=== PATIENT | female | born 1970 | race Caucasian/White ===

== ENCOUNTER 2025-04-09 19:22 | Inpatient (IN) | payer MEDICAID ==
[~2025-04-09] VITALS: Ht 152.4 cm; Wt 70.8 kg
[2025-04-09 20:12] LABS: MEAN PLATELET VOLUME 8.3 FL (7.4-10.4); RED CELL DISTRIBUTION WIDTH 14.5 % (11.5-14.5)
--- NOTE | 2025-04-09 20:21 | RADIOLOGY REPORT ---
CLINICAL HISTORY: CP TECHNIQUE: Single view of the chest was obtained. COMPARISON: DI CHEST,SINGLE VIEW on DOS: 04/07/25 FINDINGS: The heart size and pulmonary vasculature are normal. The lungs are clear. IMPRESSION: NO ACUTE CARDIOPULMONARY PROCESS.
[2025-04-09 20:30] LABS: CREATININE 0.91 MG/DL (0.40-0.90); PRO BRAIN NATRIURETIC PEPTIDE < 30 PG/ML (0-125); TOTAL CARBON DIOXIDE 24.6 MMOL/L (24-32); eGFR 64 ML/MIN
--- NOTE | 2025-04-09 21:32 | Physician Documentation ---
History of Present Illness ~ Chief Complaint: Chest Pain Stated Complaint: RECHECK Time Seen by MD: 21:31 Mode of Arrival: POV, Ambulatory HPI Patient presents to the emergency room for evaluation of chest pain. She was seen here a couple of days ago for the same complaint and I wanted to admit the patient as she had an elevated heart score however she had a child with her in his unable to be admitted. 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 Previous history as below: Patient presents to the emergency room with chest pain radiating to her left upper extremity over the past two weeks. She states that has getting worse. Brought on by activity. She is new to the area and states she has never had a cardiologic workup. She went to a walk-in clinic today with her complaint in his sent to the emergency room. Reports history of prediabetes and states she does not smoke. She continues to have intermittent chest pain. Medication Reconciliation Allergies: Coded Allergies: vitamin A (Verified Allergy, Unknown, rash and eye swelling, 04/09/25) Review of Systems ROS All review of systems negative except as per HPI Physical Exam Vital Signs: Temperature: 96.3, Source: Temporal, Heart Rate: 69, Respiratory Rate: 14, BP: 145/81, Pulse Oximetry: 98 Physical Exam General: Patient is awake, alert, oriented x4 in no acute distress and well appearing.~ Head: Normocephalic and atraumatic. Eyes: Conjunctival normal. EOMI. PERRL. ENT: Mucous membranes moist. Neck: Supple, trachea is midline. Chest: Clear to auscultation bilaterally without rales, rhonchi, or wheezes. There is no accessory muscle use or retractions. Cardiac: RRR without murmurs, gallops, or rubs. Progress Results/Orders Results/Orders Orders - PASTOR BALTAZAR MD Chest,Single View (04/09/25 19:40) Monitor (04/09/25 19:40) Saline Lock (04/09/25 19:40) Oxygen (04/09/25 19:40) Electrocardiogram (04/09/25 19:40) Hs Troponin I W Calculations (04/09/25 21:40) Hs Troponin I W Calculations (04/09/25 22:40) Completed Orders - PASTOR BALTAZAR MD Chest,Single View (04/09/25 19:40) Cbc/Diff (04/09/25 19:40) BMP (04/09/25 19:40) PBNP (04/09/25 19:40) Hs Troponin I W Calculations (04/09/25 19:40) Vital Signs 04/09/25 04/09/25 19:36 21:27 Temp 96.3 Pulse 69 Resp 15 14 B/P (MAP) 145/81 Pulse Ox 98 Laboratory Tests Test 04/09/25 19:47 White Blood Count 6.5 Red Blood Count 5.06 Hemoglobin 14.2 Hematocrit 42.3 Mean Corpuscular Volume 83.7 Mean Corpuscular Hemoglobin 28.1 Mean Corpuscular Hemoglobin Concent 33.6 Red Cell Distribution Width 14.5 Platelet Count 257 Mean Platelet Volume 8.3 Neutrophils (%) (Auto) 52.5 Lymphocytes (%) (Auto) 37.5 Monocytes (%) (Auto) 6.3 Eosinophils (%) (Auto) 2.8 Basophils (%) (Auto) 0.9 Neutrophils # (Auto) 3.4 Lymphocytes # (Auto) 2.4 Monocytes # (Auto) 0.4 Eosinophils # (Auto) 0.2 Basophils # (Auto) 0.1 CBC Comment Sodium Level 140 Potassium Level 3.9 Chloride Level 107 Carbon Dioxide Level 24.6 Anion Gap 8 Blood Urea Nitrogen 19 H Creatinine 0.91 H Estimated GFR/1.73 m2 64 BUN/Creatinine Ratio 20.9 H Glucose Level 127 H Calcium Level 9.2 Troponin I High Sensitivity 5 Pro-B-Type Natriuretic Peptide < 30 Albumin 4.0 Chemistry Comments EKG/XRAY/CT/US/VASC/MRI EKG : Additional Comment EKG interpreted by myself shows time of 1951, rate 77, sinus rhythm, left axis deviation, no ST changes Chest X-Ray : Additional Comments Exam: CHEST,SINGLE VIEW CLINICAL HISTORY: CP TECHNIQUE: Single view of the chest was obtained. COMPARISON: DI CHEST,SINGLE VIEW on DOS: 04/07/25 FINDINGS: The heart size and pulmonary vasculature are normal. The lungs are clear. IMPRESSION: NO ACUTE CARDIOPULMONARY PROCESS. Medical Decision Making Additional information obtaine: old records Findings Patient presents to the emergency room as per HPI for chest pain. We will admit for further investigation that has patient has not elevated heart score Heart Score: 4 Differential Dx:Considerations: Include: angina, aortic dissection, chest wall pain, cholelithiasis, CHF, costochondritis, esophageal reflux/spasm, gastritis, herpes zoster, myocardial infarction, pericarditis, pleuritis, pancreatitis, pneumonia, pneumothorax, pulmonary embolus, other Departure Admitted to Inpatient Unit: yes, to hospitalist Impression: Primary Impression: Chest pain Condition: Guarded Referrals: NO PRIMARY CARE PROVIDER (PCP) Signature Scribe Signature: No scribe Attestation: The note accurately reflects work and decisions made by me.Pastor Baltazar MD 04/09/25 21:40 PASTOR BALTAZAR MD Apr 09, 2025 21:32
[2025-04-09] MEDS ORDERED: magnesium sulf-water 2g/50mL 50 ML IV PRN (22:05)
[2025-04-09] MEDS ORDERED: magnesium hydroxide 30ml (MOM) UD suspension PO PRN (22:05)
[2025-04-09] MEDS ORDERED: mag hydrox/Alum hydrox/simeth 30ml oral suspension PO PRN (22:05)
[2025-04-09] MEDS ORDERED: magnesium sulf-water 4G/100mL 100 ML IV PRN (22:05)
[2025-04-09] MEDS ORDERED: magnesium Cl slow-release 64mg tablet PO PRN (22:05)
[2025-04-09] MEDS ORDERED: potassium Cl 20 mEq SR tablet PO PRN ×2 (22:05)
[2025-04-09] MEDS ORDERED: potassium Cl 40MEQ/1/2NS 520ml 520 ML IV PRN (22:05)
[2025-04-09 22:35] LABS: CHOL/HDL RATIO 6.8 (0.00-4.99); LDL CHOLESTEROL 139 MG/DL (50-100)
--- NOTE | 2025-04-09 22:53 | HISTORY AND PHYSICAL-Residence ---
History & Physical Providers to CC Resident Creating Document: PARMINDER BARNETT, RES ~ History of Present Illness Reason for Admit\Complaint: Acute coronary syndrome History of Present Illness 54 year-old female with a past medical history of Hypertension,migraine, Anxiety, urinary Incontinence, prediabetes, and gout presents with retrosternal chest pain that began approximately Two week ago. The pain had a gradual onset, is described as sharp, rated 7 out of 10 at rest and has progressively worsened over the past two weeks. She notes radiation to the left upper extremity and reports that the pain increases with breathing. In addition to chest pain, the patient endorses shortness of breath at rest with dry cough and orthopnea patient , U/L RT Lower extrimity Edema and mentioned she uses 3 pillows at home for sleep-not on any home oxygen but denies paroxysmal nocturnal dyspnea. She also reports fatigue, cold intolerance, constipation, and episodes of nausea and vomiting. She denies palpitations, syncope, wheezing, fever, chills, and any recent upper respiratory symptoms. She has no known history of coronary artery disease, myocardial infarction, arrhythmias, or prior cardiac evaluations or interventions. The patient is new to the area, has never undergone a cardiologic workup, and currently does not have a primary care provider. She also reports that she has run out of her medications. Per ED: Patient presents to the emergency room for evaluation of chest pain. She was seen here a couple of days ago for the same complaint and I wanted to admit the patient as she had an elevated heart score however she had a child with her in his unable to be admitted. She has since arrange for child care sitter. 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 [employer] Lives with daughter in her home and able to ambulate with out any assistance ROS Constitutional: Reports: weakness (and head ache ) Eyes: Reports: no symptoms reported ENT: Reports: no symptoms reported Respiratory: Reports: orthopnea (at rest), shortness of breath Cardiovascular: Reports: chest pain, edema (U/L Right Lower extremity edema) Gastrointestinal: Reports: nausea, vomiting, constipated Genitourinary: Reports: urgency Female Genitalia: Reports: no reported symptoms Neurological: Reports: no symptoms reported Musculoskeletal: Reports: gout Integumentary: Reports: no symptoms reported Allergic/Immunologic: Reports: no symptoms reported Hematologic/Lymphatic: Reports: no symptoms reported Endocrine: Reports: intolerance to cold Psychiatric: Reports: anxiety Exam Vitals: Vital Signs Date Time Temp Pulse Resp B/P (MAP) Pulse Ox O2 Delivery O2 Flow Rate FiO2 04/09/25 21:27 14 04/09/25 19:36 96.3 69 98 General: GENERAL: Awake, alert, oriented. HEENT : Normocephalic, atraumatic, pupils equal and reactive to light, extraocular movements intact, no scleral icterus or conjunctival pallor, nasal mucosa is moist, oral mucosa moist NECK: neck is supple, trachea midline, no lymphadenopathy, no thyromegaly, no JV distention RESPIRATORY: Chest expansion equal bilaterally, breath sounds vesicular, no wheezes, or rhonchi. No use of accessory muscles, no tenderness on palpation. CARDIOVASCULAR: S1 and S2 heard, no murmurs, no rubs, or gallops ABDOMEN: Soft, nontender, nondistended, bowel sounds present and normoactive. No organomegaly, no palpable mass, no rebound or guarding NEUROLOGICAL: Alert, oriented, normal memory, speech is normal Cranial nerves II-XII- intact Motor strength 5/5 Sensation-intact in all extremities Reflexes +2 and symmetrical Coordination is intact EXTREMITIES: Significant Painfull and Swelling +2 Edema of Right LLE and Mild swelling of LLE, peripheral pulses [place],Bunion on left lower foot is noted Psychiatric:Appropriate mood and affect,No hallucinations or suicidal ideation Diagnostic Data Last Recorded Lab Results: 04/09/25194604/09/251946 Advance Care Planning Advanced Care plannin - 30 Minutes Additional Plan 54 years old female with past medical history of Anxiety,Migraine,GERD- Dysphagia,Hypertension who presented to ED with chest pain he is currently evaluated for acute coronary syndrome Acute coronary syndrome possible 2/2 unstable angina DD: GERD Patient mentioned Chest pain at rest,associated with leg swelling and She also mentioned history of PPI use for GERD Troponin-normal, ProBNP- normal Vitals are stable LDL 139, HB A1c 6.1, F/p with TSH Started aspirin 81 mg, atorvastatin 80 mg, carvedilol 3.25 mg p.o. b.i.d., sublingual nitroglycerin p.r.n. for chest pain Follow up with echocardiogram, U tox, Venous USG-Lower extremity Patient will be NPO for midnight, Lexiscan tomorrow in AM continues Telemetry monitoring Hyperlipidemia Patient LDL cholesterol-139 Started atorvastatin 80 mg p.o. daily U/L Right leg swelling DVT cannt rule out Patient endorses Painful swelling of Right LLE, She has a long history of LLE Edema for which she takes Lasix Continue home med after med rec D-Dimers-0.25 Follow up with Venous Doppler H/O Hypertension per Patient she takes Lasix for both HTN and Edema at home Pending med rec Migrane Continue Home med after Med rec Patient is on Tylenol PRN H/O Dysphagia /GERD Patient used to take Prontonix daily for GERD but She ran out of medications from past few months Started protonix 40mg IV Daily PreDiabetic SaB2O-8.1 Follow up with PCP-outpatient H/O Gout Continue home med after med rec Code Status: Full DVT prophylaxis: Heparin subQ Analgesia/Sedation: Morphine/nitroglycerin Line/tube: Peripheral Nutrition: NPO from midnight PT: Ordered Prognosis: Guarded Disposition: Patient will be monitored in PCU with telemetry and NPO from midnight, Lexiscan tomorrow at am Parminder Barnett PGY1-Internal Medicine Resident Patient assessed, case discussed with resident. I agree with the H & P and assessment and plan with no changes. No Yeager MD Critical Care Date of Service: Apr 09, 2025 Billing Provider: NO YEAGER MD, SATISH, RES Apr 09, 2025 22:53 NO YEAGER MD Apr 11, 2025 10:08
[2025-04-09] MEDS: PERFLUTREN PROTEIN-A MICROSPHR (Optison) 0.22 MG/ML 3ML VIAL IV ONE (23:37)
[2025-04-10] VITALS (15 sets, daily range): BP systolic 113–136; BP diastolic 43–92; PULSE 50–92; RESP 12–18; TEMP 97.2–97.7; O2SAT 95–100
[2025-04-10] MEDS: heparin, porcine 5000 units/ml vial SQ SCH (01:38)
[2025-04-10] MEDS ORDERED: aminophylline 250mg/10ml inj. IV PRN (02:40)
[2025-04-10] MEDS ORDERED: regadenoson 0.4mg/5ml syringe IV PRN (02:40)
[2025-04-10] MEDS ORDERED: metoprolol tartrate 1mg/ml inj IV PRN (02:40)
[2025-04-10 03:20] LABS: URINE AMPHETAMINE SCREEN NEGATIVE (Neg); URINE BARBITUATE SCREEN NEGATIVE (Neg); URINE BENZODIAZEPINES SCREEN NEGATIVE (Neg); URINE CANNABINOID SCREEN NEGATIVE (Neg); URINE COCAINE SCREEN NEGATIVE (Neg); URINE METHADONE SCREEN NEGATIVE (Neg); URINE OPIATE SCREEN NEGATIVE (Neg); URINE PHENCYCLIDINE SCREEN NEGATIVE (Neg)
[2025-04-10 03:33] LABS: LEUKOCYTE ESTERASE ,URINE NEGATIVE (Neg); NITRITES, URINE NEGATIVE (Neg); OCCULT BLOOD,URINE NEGATIVE (Neg)
[2025-04-10 03:44] LABS: UA COLLECTION TYPE NON-SPECIFIED
[2025-04-10] MEDS ORDERED: IBUP-2697 PO (03:54)
[2025-04-10] MEDS ORDERED: LIDO1ADH58 TOP (03:54)
[2025-04-10] MEDS ORDERED: SEMA0.253 SUBCUT (03:54)
[2025-04-10] MEDS ORDERED: GABA-530 PO (03:54)
[2025-04-10] MEDS ORDERED: POLY17PO59 PO (03:54)
[2025-04-10] MEDS ORDERED: KEN0.1O TOP (03:54)
[2025-04-10] MEDS ORDERED: LORA10TA7 PO (03:54)
[2025-04-10] MEDS ORDERED: ACET-1015 PO (03:54)
[2025-04-10] MEDS ORDERED: BUPR100T13 PO (03:54)
[2025-04-10] MEDS ORDERED: LIDO35.4 (03:54)
[2025-04-10] MEDS ORDERED: KETO-97 (03:54)
[2025-04-10] MEDS ORDERED: OXYB-58 PO (03:54)
[2025-04-10] MEDS ORDERED: RIZA10TA98 PO (03:54)
[2025-04-10] MEDS ORDERED: PANT20TA18 PO (03:54)
[2025-04-10] MEDS ORDERED: TRIA1CAP88 PO (03:54)
[2025-04-10] MEDS ORDERED: FLUT16SP BOTHNARES (03:54)
[2025-04-10 06:53] LABS: MEAN PLATELET VOLUME 8.3 FL (7.4-10.4); RED CELL DISTRIBUTION WIDTH 14.6 % (11.5-14.5)
[2025-04-10 07:19] LABS: CREATININE 0.69 MG/DL (0.40-0.90); TOTAL CARBON DIOXIDE 27.1 MMOL/L (24-32); eCRCL 66 ML/MIN; eGFR 88 ML/MIN
[2025-04-10] MEDS: K and/or MAG REPLACEMENT MC SCH (08:00)
[2025-04-10] MEDS: docusate sod 100mg capsule PO SCH (08:43)
[2025-04-10] MEDS: ondansetron/PF 4mg/2ml inj IV PRN (08:55)
--- NOTE | 2025-04-10 09:13 | VASCULAR REPORT ---
Bilateral lower extremity venous duplex Clinical History: edema Comparison: None Findings: Duplex Doppler evaluation of the deep venous systems of both lower extremities from the common femoral veins to the popliteal veins including color Doppler and spectral/pulsed waveform analysis was performed. [employer] Swelling and pain bilateral legs x 4 years. Negative Dimer Vein Imaging (Right) CFV (R): Compressible, Spontaneous, Respirophasic, Augmentation Reflux: ms SFJ (R): Compressible, Spontaneous, Respirophasic, Augmentation Reflux: ms FEM (R): Compressible, Spontaneous, Respirophasic, Augmentation Reflux: ms POP (R): Compressible, Spontaneous, Respirophasic, Augmentation Reflux: ms DFV (R): Compressible, Spontaneous, Respirophasic, Augmentation Reflux: ms PTV (R): Compressible, Spontaneous, Respirophasic, Augmentation Reflux: ms GSV (R): Compressible, Spontaneous, Respirophasic, Augmentation Reflux: ms Peroneals (R): Compressible, Spontaneous, Respirophasic, Augmentation Reflux: ms Vein Imaging (Left) CFV (L): Compressible, Spontaneous, Respirophasic, Augmentation Reflux: ms SFJ (L): Compressible, Spontaneous, Respirophasic, Augmentation Reflux: ms FEM (L): Compressible, Spontaneous, Respirophasic, Augmentation Reflux: ms POP (L): Compressible, Spontaneous, Respirophasic, Augmentation Reflux: ms DFV (L): Compressible, Spontaneous, Respirophasic, Augmentation Reflux: ms PTV (L): Compressible, Spontaneous, Respirophasic, Augmentation Reflux: ms GSV (L): Compressible, Spontaneous, Respirophasic, Augmentation Reflux: ms Peroneals (L): Compressible, Spontaneous, Respirophasic, Augmentation Reflux: ms CONCLUSION No sonographic evidence of deep vein thrombosis to bilateral lower extremity. Normal compressible veins with respirophasic flow and good augmentation throughout bilateral leg.
--- NOTE | 2025-04-10 11:37 | RADIOLOGY REPORT ---
HISTORY: Unstable angina TECHNIQUE: At peak stress, 8.2 mCi of sestamibi was administered intravenously. Soon thereafter, gated SPECT imaging of the heart was performed with the patient in the supine position. At rest, 32.2 mCi of sestamibi was administered intravenously. Soon thereafter, gated SPECT imaging of the heart was performed with the patient in the supine position. FINDINGS: The left ventricular myocardium demonstrates uniform radiotracer distribution, without perfusion defect. The left ventricular cavity is normal in size. Calculated LVEF is 72 %. No segmental wall motion abnormality. IMPRESSION: NORMAL MYOCARDIAL PERFUSION EXAM. LVEF 72 %.
--- NOTE | 2025-04-10 18:46 | PROGRESS NOTE- Residence ---
Progress Note - Resident Providers to CC Resident Creating Document: JHOAN CHEN RES ~ Antibiotic Timeout Antibiotic Ordered?: No Subjective Patient was seen and examined on bedside, she is reporting chest pain , arm pain , leg pain. Patient also reports she has history of bladder problem whever she laugh, cough or sneez she pass out urine. Objective Vital Signs Date Time Temp Pulse Resp B/P (MAP) Pulse Ox O2 Delivery O2 Flow Rate FiO2 04/10/25 11:00 97.3 55 13 114/70 (85) 97 Room Air Result Diagram: 04/10/2555604/10/25556 GENERAL: Awake, alert, oriented. HEENT : Normocephalic, atraumatic, pupils equal and reactive to light, extraocular movements intact, no scleral icterus or conjunctival pallor, nasal mucosa is moist, oral mucosa moist NECK: neck is supple, trachea midline, no lymphadenopathy, no thyromegaly, no JV distention RESPIRATORY: Chest expansion equal bilaterally, breath sounds vesicular, no wheezes, or rhonchi. No use of accessory muscles, chest tender on palpation. CARDIOVASCULAR: S1 and S2 heard, no murmurs, no rubs, or gallops ABDOMEN: Soft, nontender, nondistended, bowel sounds present and normoactive. No organomegaly, no palpable mass, no rebound or guarding NEUROLOGICAL: Alert, oriented, normal memory, speech is normal Cranial nerves II-XII- intact Motor strength 5/5 Sensation-intact in all extremities Reflexes +2 and symmetrical Coordination is intact EXTREMITIES: Significant Painfull and Swelling +2 Edema of Right LLE and Mild swelling of LLE. Psychiatric:Appropriate mood and affect. Coagulation Studies Laboratory Tests Test 04/10/25 00:04 D-Dimer 0.25 MG/L FEU (0-0.50) D-Dimer Comment Plan Plan Acute coronary syndrome possible 2/2 unstable angina Patient mentioned Chest pain at rest,associated with unilateral leg swelling and She also mentioned history of PPI use for GERD Troponin normal, ProBNP normal Continue aspirin 81 mg, atorvastatin 80 mg, carvedilol 3.25 mg p.o. b.i.d., sublingual nitroglycerin p.r.n. for chest pain Echo showed:Overall LVEF is 60-65%. Lexiscan showed: The left ventricular myocardium demonstrates uniform radiotracer distribution, without perfusion defect. On telemetry U/L Right leg swelling D-Dimers-0.25 Ultrasound Leg negative for DVT In view of unilateral right leg swelling ordered pelvic u/s for possbile malignancy which could contribute to lower leg swelling Follow up with Pelvic U/S Stress Incontinence Continue oxybutynin Hyperlipidemia LDL Cholestrol 139 Cholestrol 226 Continue Atorvastatin 80 mg Hypertension Continue triamterene-Hctz 37.52-25 mg Migrane Previously as per she used to take tripan she switched to other medication, she dont remeber name. Tylenol p.r.n. H/O Dysphagia /GERD Patient used to take Prontonix daily for GERD but She ran out of medications from past few months Continue Protonix 40 mg IV daily H/O Gout She currently dont take anymedication for gout. Code Status: Full DVT prophylaxis: Heparin subQ Analgesia/Sedation: Morphine/nitroglycerin Nutrition: Heart healthy Disposition: Will consult Cardiology tomorrow possbily,possible discharge tomorrow Jhoan Chen PGY1 IM Date of Service: Apr 10, 2025 Billing Provider: GERONIMO WILSON MD,JHOAN, RES Apr 10, 2025 18:46
--- NOTE | 2025-04-10 20:06 | ELECTROCARDIOGRAPH REPORT ---
[facility] Test Date: 2025-04-10 Test Time: 20:03:43 Pat Name: ARRON RENE Department: ED HOLD Room: [place] [address] A Gender: F Hand Riveter: : [id number] Requested By: JHOAN CHEN Order Number: [id number] Reading MD: Dr. DEVIN Muse Measurements Intervals [place] Rate: 56 P: 8 VT: 143 QRS: 18 QRSD: 92 T: 33 QT: 414 QTc: 400 Interpretive Statements Sinus rhythm Electronically Signed On 04-11-2025 13:30:[address] DEVIN Muse Please click the below link to view image of tracing.
[2025-04-10] MEDS: buPROPion 100mg tablet PO SCH (20:15)
[2025-04-11 02:00] VITALS: BP 107/50; PULSE 63; RESP 12; TEMP 98.2; O2SAT 97
[2025-04-11 06:10] LABS: MEAN PLATELET VOLUME 8.3 FL (7.4-10.4); RED CELL DISTRIBUTION WIDTH 14.2 % (11.5-14.5)
[2025-04-11 06:17] LABS: CREATININE 0.90 MG/DL (0.40-0.90); TOTAL CARBON DIOXIDE 27.5 MMOL/L (24-32); eCRCL 51 ML/MIN; eGFR 65 ML/MIN
[2025-04-11 07:00] VITALS: BP 141/63; PULSE 58; RESP 16; TEMP 97.8; O2SAT 98
[2025-04-11] MEDS: pantoprazole 40mg Tablet.DR PO SCH (07:36)
--- NOTE | 2025-04-11 07:57 | RADIOLOGY REPORT ---
INDICATION: Right LE edema, Pelvis usg TECHNIQUE: Multiple real-time grayscale transabdominal sonographic images along with color and duplex Doppler of the uterus and ovaries were obtained. COMPARISON: None Findings/ IMPRESSION: Post hysterectomy. Right ovary is not visualized and may be surgically absent. Left ovary measures 3.1 x 1.4 x 1.5 cm and is unremarkable. No free fluid or pelvic mass is visualized.
[2025-04-11] MEDS: OXYBUTYNIN 15 MG PO SCH (08:00)
[2025-04-11 08:30] VITALS: RESP 16; O2SAT 98
[2025-04-11 11:00] VITALS: BP 136/68; PULSE 63; RESP 15; TEMP 97.2; O2SAT 93
[2025-04-11] MEDS ORDERED: ATOR20TA66 PO (12:59)
[2025-04-11] MEDS ORDERED: ASPI81TA53 PO (12:59)
[2025-04-11] MEDS ORDERED: NITR0.4T51 SL (12:59)
[2025-04-11] MEDS ORDERED: LOSA-420 PO (13:06)
--- NOTE | 2025-04-11 13:34 | CARDIOLOGY REPORT ---
APPROVED REPORT EXAM: Comprehensive 2D, Doppler, and color-flow Echocardiogram. Patient Location: 302 Blood Pressure: 114/70 mmHg Heart Rate: 51 bpm Rhythm: Sinus Bradycardia Indications Chest Pain Hypertension No market research lead No previous echo 2D Dimensions LA Diam 4.3 cm IVSd 1.1 (0.7-1.1cm) LVDd 4.3 cm PWd 1.1 (0.7-1.1cm) IVSs 1.4 (0.8-1.2cm) LVDs 2.9 (2.5-4.0cm) Aortic Root(2D) 3.0 cm PWs 1.3 (0.8-1.2cm) LVOT Diameter 2.01 (1.8-2.4cm) LVEF(%) 61.3 (>50%) Ao Asc Diam. 2.88 cm IVC 17.26 mm FS (%) 32.6 % SV 50.6 ml CO 2.6 L/min M-Mode Dimensions MV EPSS 0.5 (<0.5cm) Aortic Valve AoV Peak Julius. 182.1 cm/s AoV VTI 37.8 cm AO Peak GR. 13.3 mmHg AO Mean GR. 6 mmHg LVOT VTI 27.81 cm LVOT Peak Julius. 114.4 cm/s SHU(VTI)/BSA 2.33 cm2/m2 SHU (VTI) 2.33 cm2 AV DI 0.74 % Mitral Valve MV E Velocity 90.7 cm/s MV Peak Gr. 5 mmHg MV DECEL TIME 192 ms MV A Velocity 74.9 cm/s MV PHT 56 ms E/A Ratio 1.2 MVA (PHT) 3.93 cm2 MV VMax 113.1 cm/s TDI Medial E' P. V 9.45 cm/s E/Medial E' 9.6 Tricuspid Valve RAP ESTIMATE 10 mmHg Pulmonary Vein S1 Velocity 70.4 cm/s D2 Velocity 49.1 cm/s PVa Velocity 22.7 cm/s PVa Duration 84 msec LEFT VENTRICLE Normal LV size and wall thickness. Overall systolic function is normal. Overall LVEF is 60-65%. RIGHT VENTRICLE RV appears normal in size and contractility. ATRIA Left atrium is mildly dilated. AORTIC VALVE Trileaflet AV appears sclerotic without stenosis. No insufficiency. MITRAL VALVE MV is thickened with no annular calcification or stenosis. Trace mitral regurgitation. TRICUSPID VALVE The tricuspid valve is normal in structure. Trace tricuspid regurgitation. PULMONIC VALVE The pulmonary valve is normal in structure. Trace pulmonic insufficiency. GREAT VESSELS The aortic root is normal in size. The ascending aorta is normal in size. The IVC is normal in size and collapses >50% with inspiration. PERICARDIUM There is no pericardial effusion. Other Information Study Quality: Adequate Conclusion Overall LVEF is 60-65%. Normal LV size and wall thickness. Overall systolic function is normal. RV appears normal in size and contractility. Trileaflet AV appears sclerotic without stenosis. No insufficiency. Trace mitral regurgitation. Trace tricuspid regurgitation. There is no pericardial effusion.
--- NOTE | 2025-04-11 18:01 | DISCHARGE SUMMARY-Residence ---
Discharge Summary Providers to CC Resident Creating Document: JHOAN CHEN, JANET ~ Discharge Summary Admission Diagnosis: UNSTABLE ANGINA Hospital Course DATE OF ADMISSION: 04/09/25 DATE OF DISCHARGE: 04/11/2025 Discharge Diagnosis\Comment: Costochondritis Acute coronary syndrome ruled out U/L Right leg swelling Stress Incontinence Hyperlipidemia Hypertension Migrane GERD H/O Gout Operations\Procedures: none Consultants: none Complications: none Condition on DC: Stable New Medications: Losartan/Hydrochlorothiazide (Hyzaar 50-12.5 Tablet) 50 Mg-12.5 Mg Tablet 1 TAB PO DAILY for 30 Days, #30 TAB 0 Refills Aspirin (Children's Aspirin) 81 Mg Tab.chew 81 MG PO DAILY@0830, #30 TAB.CHEW Atorvastatin Calcium (Atorvastatin Calcium) 20 Mg Tablet 40 MG PO DAILY, #60 TAB Nitroglycerin SL* (Nitrostat SL*) 0.4 Mg Tablet 0.4 MG SL Q5MIN PRN for chest pain, #5 TAB Continued Medications: Acetaminophen (Acetaminophen) 500 Mg Tablet PO Q8H PRN for pain for 30 Days, #60 TAB Bupropion Hcl (Wellbutrin) 100 Mg Tablet 1 TAB PO Q12H for 30 Days, #60 TAB 0 Refills Fluticasone Propionate (Fluticasone Propionate) 50 Mcg/Actuation [place].susp 2 SPRAYS BOTHNARES DAILY, #16 GM 0 Refills Gabapentin (Gabapentin) 100 Mg Capsule 1 CAP PO PRN for pain for 30 Days, #90 CAP 0 Refills 1-2 capsules PRN Ibuprofen (Ibuprofen) 200 Mg Tablet 3 TAB PO Q6H for 5 Days, #40 TAB 0 Refills 600mg Ketotifen Fumarate (Eye Itch Relief) 0.025 % (0.035 %) Drops PRN Lidocaine (Lidocaine) 5 % Oint...g. TID for pain Lidocaine (Ztlido) 1.8 % Adh..patch 1 PATCH TOP DAILY PRN for pain for 30 Days, #30 PATCH 0 Refills NEEDED FOR PAIN Loratadine (Loratadine) 10 Mg Tablet 1 TAB PO PRN for 30 Days, #30 TAB 0 Refills Oxybutynin Chloride (Ditropan Xl) 5 Mg Tab.osm.24 3 TAB PO DAILY for 30 Days, #30 TAB 0 Refills 15mg Pantoprazole Sodium (Protonix) 20 Mg Tablet.dr 2 TAB PO DAILY for 30 Days, #30 TAB 0 Refills 40mg Polyethylene Glycol 3350 (Polyethylene Glycol 3350) 17 Gram Powd.pack 2 PKT PO PRN for 10 Days, #10 PKT 0 Refills Rizatriptan Benzoate (Rizatriptan) 10 Mg Tab.rapdis 10 MG PO PRN for migraine, TAB Semaglutide (Wegovy) 0.25 Mg/0.5 Ml Pen.injctr 0.25 MG SUBCUT Q7D for weight loss for 28 Days, #2 ML 0 Refills new med, pt has not try Triamcinolone Acetonide 0.1% Crm* (Kenalog 0.1% Crm*) 1 Applic Tube 1 APPLIC TOP PRN for 10 Days, #80 GM Discontinued Medications: Triamterene/Hydrochlorothiazid (Triamterene-Hctz 37.5-25 Mg Cp) 37.5 Mg-25 Mg Capsule 3 CAP PO DAILY for 30 Days, #30 CAP 0 Refills Discharge Summary: Hospital Course This 54-year-old female with past medical history of migraine, urinary incontinence, gout, GERD presents in ER with chest pain that began approximately two weeks ago, in view of this serial troponins were done which were negative, and received morphine for pain she was also started on aspirin 81 mg, atorvastatin 80 mg and carvedilol 3.125 b.i.d, proBNP level was also performed which was normal, in view of concern for chest pain Lexiscan was also performed which was negative. On arrival patient also had right leg swelling for which vascular ultrasound was done which was negative and D dimer level was normal, and patient will also started on Protonix 40 mg,Chest pain was aggravated by palpation, so likely costochondritis was suspected. She also had high cholesterol and LDL cholesterol, her blood pressure was also elevated during hospitalization, and was discharged on Hyzaar tablet. During hospitalization she also developed bradycardia however she was asymptomatic and carvedilol was discontinued. Her right leg was swollen which was her chronic condition and she was advised to follow up outpatient for that, D dimer was negative, U/S negative for DVT. Pelvic Ultrasound was performed which was not significant Apart from that patient continued her home medication, oxybutynin for her chronic conditions stress incontinence. Patient was stable and ready for discharge, and she was able to ambulate independently so no PT was not required. For DVT prophylaxis she was placed on heparin SQ. Apart from that patient was started on oxybutynin for her chronic condition stress incontinence. She also had history of carpet she was not taking any medication for it. Physical Examination GENERAL: Awake, alert, oriented. HEENT : Normocephalic, atraumatic, pupils equal and reactive to light, extraocular movements intact, no scleral icterus or conjunctival pallor, nasal mucosa is moist, oral mucosa moist NECK: neck is supple, trachea midline, no lymphadenopathy, no thyromegaly, no JV distention RESPIRATORY: Chest expansion equal bilaterally, breath sounds vesicular, no wheezes, or rhonchi. No use of accessory muscles, chest tender on palpation. CARDIOVASCULAR: S1 and S2 heard, no murmurs, no rubs, or gallops ABDOMEN: Soft, nontender, nondistended, bowel sounds present and normoactive. No organomegaly, no palpable mass, no rebound or guarding NEUROLOGICAL: Alert, oriented, normal memory, speech is normal Cranial nerves II-XII- intact Motor strength 5/5 Sensation intact in all extremities Reflexes +2 and symmetrical Coordination is intact EXTREMITIES: Swelling of right lower extremity, left lower extremity normal Upper extremities normal Psychiatric:Appropriate mood and affect. Labs Wbc: 5.4 Hgb 12.9 Hct: 38.5 D-Dimer: 0.25 Na: 140 K: 4.4 TSH: 1.53 Imaging Lexiscan FINDINGS: The left ventricular myocardium demonstrates uniform radiotracer distribution, without perfusion defect. The left ventricular cavity is normal in size. Calculated LVEF is 72 %. No segmental wall motion abnormality. IMPRESSION: NORMAL MYOCARDIAL PERFUSION EXAM. LVEF 72 %. Echo Conclusion Overall LVEF is 60-65%. Normal LV size and wall thickness. Overall systolic function is normal. RV appears normal in size and contractility. Trileaflet AV appears sclerotic without stenosis. No insufficiency. Trace mitral regurgitation. Trace tricuspid regurgitation. There is no pericardial effusion. Vascular U/S CONCLUSION No sonographic evidence of deep vein thrombosis to bilateral lower extremity. Normal compressible veins with respirophasic flow and good augmentation throughout bilateral leg. Pelvic U/S Findings/ IMPRESSION: Post hysterectomy. Right ovary is not visualized and may be surgically absent. Left ovary measures 3.1 x 1.4 x 1.5 cm and is unremarkable. No free fluid or pelvic mass is visualized. Chest X-Ray FINDINGS: The heart size and pulmonary vasculature are normal. The lungs are clear. IMPRESSION: NO ACUTE CARDIOPULMONARY PROCESS. *Problems/Diagnosis: (1) Chest pain Status: Resolved Total Time Spent on D/C: > 30 Minutes Date of Service: Apr 11, 2025 Billing Provider: GERONIMO WILSON MD,JHOAN, RES Apr 11, 2025 18:01
--- NOTE | 2025-04-13 07:06 | ELECTROCARDIOGRAPH REPORT ---
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
== END 2025-04-11 16:34 | disposition home or self-care (01) | DRG 203 ==
LOC: ER 19:23 → ED HOLD 22:11 → EDBEDREQ 04-10 02:16 → PCU 3S 04-10 02:37
PROVIDERS: ADMIT Internal Medicine Pulmonary Disease; ATTEND Internal Medicine
PROC: 4A02XM4 Measurement of Cardiac Total Activity, External Approach (ICD-10-PCS; principal; 2025-04-10)
PROC: 3E033HZ Introduction of Radioactive Substance into Peripheral Vein, Percutaneous Approach (ICD-10-PCS; 2025-04-10)
DX: M94.0 Chondrocostal junction syndrome [Tietze] (principal); E78.5 Hyperlipidemia, unspecified; F41.9 Anxiety disorder, unspecified; I10 Essential (primary) hypertension; G43.909 Migraine, unspecified, not intractable, without status migrainosus; K21.9 Gastro-esophageal reflux disease without esophagitis; N39.3 Stress incontinence (female) (male); Z90.710 Acquired absence of both cervix and uterus
CPT/HCPCS: 36415; 71045; 76856; 78452; 80048; 80053; 80061; 80305; 81003; 83036; 83880; 84443; 84484; 85025; 85379; 87081; 92508; 92616; 93005; 93017; 93306; 93970; 93976; 96374; 99285; A9500; G0378; J1644; J2270; J2405; J2470